=== PATIENT | male | born 1990 | race American Indian/Alaskan Native ===

== ENCOUNTER 2021-06-01 22:09 | Emergency (ER) | payer SELFPAY ==
[2021-06-02] MEDS ORDERED: IBUPROFEN 600 MG TAB PO ONE (02:21)
[2021-06-02] MEDS ORDERED: CLINDAMYCIN 150 MG CAP PO ONE (02:21)
--- NOTE | 2021-06-02 02:21 | Emergency Department Report ---
ED General Adult HPI - General Chief complaint: Skin/Abscess/Foreign Body Stated complaint: SWOLLEN FACE Source: patient Mode of arrival: Ambulatory Limitations: No Limitations - History of Present Illness Initial comments: Patient is a 30-year-old -Mongolian male with a history of asthma, COPD, eczema who presented to the ED with complaint of acute onset persistent painful swollen mild erythematous maculopapular rash on right cheek with thick purulent discharge for the last 5 days. Patient states that the pain is worsened in the last 24 hours such that he is unable to sleep. Patient denies dizziness, syncope, traumatic injury, fever, chills, cough, sore throat, nasal and sinus congestion or headache. MD Complaint: Painful swollen right cheek rash with purulent discharge -: Sudden, days(s) (5) Location: face (right cheek) Severity scale (0 -10): 7 Quality: aching Consistency: constant Improves with: none Worsens with: none Associated Symptoms: denies other symptoms, rash (Swollen, painful erythematous maculopapular rash with purulent discharge on right cheek). denies: confusion, chest pain, cough, diaphoresis, loss of appetite, malaise, nausea/vomiting, seizure, shortness of breath, syncope, weakness Treatments Prior to Arrival: none - Related Data Previous Rx's Medication Instructions Recorded Last Taken Type Albuterol Sulfate [Albuterol 0.63% 0.63 mg IH TID PRN #1 box 02/06/15 Unknown Rx NEBS] Albuterol Sulfate [Ventolin HFA] 2 puff IH Q4H PRN #1 hfa.aer.ad 02/06/15 Unknown Rx Azithromycin [Zithromax Z-JUSTINA] 250 mg PO DAILY #1 pack 02/06/15 Unknown Rx Cetirizine HCl [ZyrTEC] 10 mg PO QHS #30 tab.rapdis 02/06/15 Unknown Rx Fluticasone [Flonase] 1 spray NS QDAY #1 bottle 02/06/15 Unknown Rx methylPREDNISolone [Medrol Dose 4 mg PO .TAPER #1 pack 02/06/15 Unknown Rx Justina] Clindamycin [Clindamycin CAP] 300 mg PO Q8HR #60 capsule 06/02/21 Unknown Rx Ibuprofen [Motrin] 800 mg PO Q8HR PRN #30 tablet 06/02/21 Unknown Rx Sulfamethoxazole/Trimethoprim 1 each PO Q12H #20 tablet 06/02/21 Unknown Rx [Bactrim DS TAB] Allergies Allergy/AdvReac Type Severity Reaction Status Date / Time No Known Allergies Allergy Unverified 02/06/15 17:04 ED Review of Systems ROS: Stated complaint: SWOLLEN FACE Other details as noted in HPI Constitutional: denies: chills, fever Eyes: denies: eye pain, eye discharge, vision change ENT: other (Swollen, painful, erythematous maculopapular rash on the right cheek with thick purulent discharge). denies: ear pain, throat pain Respiratory: denies: cough, shortness of breath, wheezing Cardiovascular: denies: chest pain, palpitations Endocrine: no symptoms reported Gastrointestinal: denies: abdominal pain, nausea, diarrhea Genitourinary: denies: urgency, dysuria Musculoskeletal: denies: back pain, joint swelling, arthralgia Skin: rash (Swollen, painful, erythematous maculopapular rash with thick purulent discharge on right cheek). denies: lesions Neurological: denies: headache, weakness, paresthesias Psychiatric: denies: anxiety, depression Hematological/Lymphatic: denies: easy bleeding, easy bruising ED Past Medical Hx - Past Medical History Previous Medical History?: Yes Hx Hypertension: Yes Hx Asthma: Yes Hx COPD: Yes - Surgical History Past Surgical History?: No - Social History Smoking Status: Former Smoker Substance Use Type: None - Medications Home Medications: Home Medications Medication Instructions Recorded Confirmed Last Taken Type Albuterol Sulfate [Albuterol 0.63% 0.63 mg IH TID PRN #1 box 02/06/15 Unknown Rx NEBS] Albuterol Sulfate [Ventolin HFA] 2 puff IH Q4H PRN #1 hfa.aer.ad 02/06/15 Unknown Rx Azithromycin [Zithromax Z-JUSTINA] 250 mg PO DAILY #1 pack 02/06/15 Unknown Rx Cetirizine HCl [ZyrTEC] 10 mg PO QHS #30 tab.rapdis 02/06/15 Unknown Rx Fluticasone [Flonase] 1 spray NS QDAY #1 bottle 02/06/15 Unknown Rx methylPREDNISolone [Medrol Dose 4 mg PO .TAPER #1 pack 02/06/15 Unknown Rx Justina] Clindamycin [Clindamycin CAP] 300 mg PO Q8HR #60 capsule 06/02/21 Unknown Rx Ibuprofen [Motrin] 800 mg PO Q8HR PRN #30 tablet 06/02/21 Unknown Rx Sulfamethoxazole/Trimethoprim 1 each PO Q12H #20 tablet 06/02/21 Unknown Rx [Bactrim DS TAB] ED Physical Exam - General Limitations: No Limitations General appearance: alert, in no apparent distress - Head Head exam: Present: atraumatic, normocephalic, normal inspection - Eye Eye exam: Present: normal appearance, PERRL, EOMI Pupils: Present: normal accommodation - ENT ENT exam: Present: normal orophraynx, mucous membranes moist, TM's normal bilaterally, normal external ear exam, other (Palpable right cheek tenderness with swelling due to erythematous maculopapular fluctuant rash with thick purulent discharge) - Neck Neck exam: Present: normal inspection, full ROM - Respiratory Respiratory exam: Present: normal lung sounds bilaterally. Absent: respiratory distress, wheezes, rales, rhonchi, chest wall tenderness, accessory muscle use, decreased breath sounds, prolonged expiratory - Cardiovascular Cardiovascular Exam: Present: regular rate, normal rhythm, normal heart sounds. Absent: systolic murmur, diastolic murmur, rubs, gallop - GI/Abdominal GI/Abdominal exam: Present: soft, normal bowel sounds. Absent: tenderness, guarding, rebound, hyperactive bowel sounds, hypoactive bowel sounds, mass - Extremities Exam Extremities exam: Present: normal inspection, full ROM, normal capillary refill - Back Exam Back exam: Present: normal inspection, full ROM. Absent: tenderness, CVA ten derness (R), CVA tenderness (L), muscle spasm, paraspinal tenderness, vertebral tenderness - Neurological Exam Neurological exam: Present: alert, oriented X3, CN II-XII intact, normal gait, reflexes normal - Psychiatric Psychiatric exam: Present: normal affect, normal mood - Skin Skin exam: Present: warm, dry, intact, normal color, rash (Swollen, mildly erythematous maculopapular severely tender rash with fluctuance on the right cheek with thick purulent discharge), erythema ED Course Vital Signs 06/01/21 22:39 Temperature 99.0 F Pulse Rate 95 H Respiratory 17 Rate Blood Pressure 112/87 O2 Sat by Pulse 100 Oximetry ED Medical Decision Making - Medical Decision Making This is a 30-year-old -Mongolian male with a history of asthma, COPD, eczema who presented to the ED with complaint of acute onset persistent painful swollen mild erythematous maculopapular rash on right cheek with thick purulent discharge for the last 5 days. Patient states that the pain is worsened in the last 24 hours such that he is unable to sleep. In the ED, patient is alert and oriented x3 and is not in any distress. Patient was treated in the ED for pain and also given initial oral antibiotics. The wound was cleaned with normal saline and dressed appropriately. Patient was discharged home on pain medication antibiotics and advised to follow-up with his primary care physician in 7 to 10 days for reevaluation or return to the ED immediately if symptoms get worse. - Differential Diagnosis Folliculitis; abscess; cellulitis; Critical care attestation.: If time is entered above; I have spent that time in minutes in the direct care of this critically ill patient, excluding procedure time. ED Disposition Clinical Impression: Acute folliculitis, Acute abscess of face, Cellulitis of right external cheek Disposition: HOME / SELF CARE / HOMELESS Is pt being admited?: No Does the pt Need Aspirin: No Condition: Stable Instructions: Skin Abscess, [id number], Cellulitis, Adult, [id number], Folliculitis Additional Instructions: Take medication with food, drink plenty of fluids and follow-up with your primary care physician in 7 to 10 days for reevaluation. Return to the ED immediately if symptoms get worse. Prescriptions: Sulfamethoxazole/Trimethoprim [Bactrim DS TAB] 1 each PO Q12H #20 tablet Clindamycin [Clindamycin CAP] 300 mg PO Q8HR #60 capsule Ibuprofen [Motrin] 800 mg PO Q8HR PRN #30 tablet PRN Reason: Pain , Severe (7-10) Referrals: [facility] [Provider Group] - 7-10 days Time of Disposition: 02:20 Print Language: LAO
[2021-06-02] MEDS ORDERED: traMADol 50 MG TAB PO ONE (02:22)
[2021-06-02 03:13] VITALS: BP 140/88
== END 2021-06-02 03:07 | disposition home or self-care (01) ==
LOC: ED 22:09
DX: L73.9 Follicular disorder, unspecified (principal); L02.01 Cutaneous abscess of face; L03.211 Cellulitis of face; I10 Essential (primary) hypertension; J44.9 Chronic obstructive pulmonary disease, unspecified; Z87.891 Personal history of nicotine dependence; Z79.899 Other long term (current) drug therapy
CPT/HCPCS: 99282

== ENCOUNTER 2021-06-27 11:53 | Emergency (ER) | payer SELFPAY ==
[2021-06-27 12:19] VITALS: BP 139/97
--- NOTE | 2021-06-27 13:32 | Emergency Department Report ---
Minor Respiratory - HPI Chief Complaint: Chest Pain Stated Complaint: HEART PAINS/BODYACHES Time Seen by Provider: 06/27/21 13:23 Duration: 2 Days Severity: mild Minor Respiratory: Yes Rhinorrhea (nasal congestion), Yes Able to Tolerate Fluids, Yes Fever, No Sore Throat, No Ear Pain, No Cough, No Sick Contacts, No Shortness of Breath Other History: 30 y/o male comes in for body aches, nasal congestion and running nose. No vaccinated for covid last tested was 7 months ago. He is alcohol abuser. Takes no medications. No fever or chills, no n/v/d. ED Review of Systems ROS: Stated complaint: HEART PAINS/BODYACHES Other details as noted in HPI Comment: All other systems reviewed and negative ED Past Medical Hx - Past Medical History Hx Hypertension: Yes Hx Asthma: Yes Hx COPD: Yes - Social History Smoking Status: Former Smoker Substance Use Type: None - Medications Home Medications: Home Medications Medication Instructions Recorded Confirmed Last Taken Type Albuterol Sulfate [Albuterol 0.63% 0.63 mg IH TID PRN #1 box 02/06/15 Unknown Rx NEBS] Albuterol Sulfate [Ventolin HFA] 2 puff IH Q4H PRN #1 hfa.aer.ad 02/06/15 Unknown Rx Azithromycin [Zithromax Z-JUSTINA] 250 mg PO DAILY #1 pack 02/06/15 Unknown Rx Cetirizine HCl [ZyrTEC] 10 mg PO QHS #30 tab.rapdis 02/06/15 Unknown Rx Fluticasone [Flonase] 1 spray NS QDAY #1 bottle 02/06/15 Unknown Rx methylPREDNISolone [Medrol Dose 4 mg PO .TAPER #1 pack 02/06/15 Unknown Rx Justina] Clindamycin [Clindamycin CAP] 300 mg PO Q8HR #60 capsule 06/02/21 Unknown Rx Ibuprofen [Motrin] 800 mg PO Q8HR PRN #30 tablet 06/02/21 Unknown Rx Sulfamethoxazole/Trimethoprim 1 each PO Q12H #20 tablet 06/02/21 Unknown Rx [Bactrim DS TAB] Minor Respiratory Exam - Exam General: Vital signs noted. No distress. Alert and acting appropriately. HEENT: Yes Moist Mucous Membranes, No Pharyngeal Erythema, No Pharyngeal Exudates, No Rhinorrhea, No Conjuctival Injection, No Frontal Tenderness, No Maxillary Tenderness Ear: Neither TM Bulge, Neither TM Erythema, Neither EAC Pain, Neither EAC Discharge Neck: Yes Supple, No Adenopathy Lungs: Yes Good Air Exchange, No Wheezes, No Ronchi, No Stridor, No Cough, No Labored Respirations, No Retractions, No Use of Accessory Muscles, No Other Abnormal Lung Sounds Heart: Yes Regular, No Murmur Abdomen: Yes Normal Bowel Sounds, No Tenderness, No Peritoneal Signs Skin: No Rash, No Edema Neurologic: Alert and oriented, no deficits. Musculoskeletal: Unremarkable. ED Course Vital Signs 06/27/21 12:17 Pulse Rate 81 Respiratory 18 Rate Blood Pressure 139/97 [Right] O2 Sat by Pulse 100 Oximetry ED Medical Decision Making - EKG Data EKG shows normal: sinus rhythm Rate: normal - Medical Decision Making 30 y/o male comes in for body aches, nasal congestion and running nose. No vaccinated for covid last tested was 7 months ago. He is alcohol abuser. Takes no medications. No fever or chills, no n/v/d. Critical care attestation.: If time is entered above; I have spent that time in minutes in the direct care of this critically ill patient, excluding procedure time. ED Disposition Clinical Impression: Suspected COVID-19 virus infection Disposition: HOME / SELF CARE / HOMELESS Is pt being admited?: No Does the pt Need Aspirin: No Condition: Stable Instructions: Prevent the Spread of COVID-19 if You Are Sick - CDC, COVID-19 Frequently Asked Questions, COVID-19: How to Protect Yourself and Others - CDC Additional Instructions: Gett tested for COVID. Take Ibuprofen or aleve for body aches. Increase your water intake and slow down or the alcohol. Use otch afrin for nasal congestion. Consider being vaccinated after a negative covid test. Referrals: [facility] [Provider Group] - 3-5 Days Forms: Work/School Release Form(ED) Time of Disposition: 13:39
--- NOTE | 2021-06-29 08:47 | Electrocardiograph Report ---
[facility] Test Date: 2021-06-27 Test Time: 12:21:52 Pat Name: ROSEMARY ROBERTS Department: Room: Gender: M [employer]: TV : 1990 Requested By: FAUSTO MARCANO Order Number: [id number] Reading MD: Flako Meza Measurements Intervals [place] Rate: 65 P: 19 LA: 128 QRS: 57 QRSD: 87 T: 42 QT: 403 QTc: 421 Interpretive Statements Sinus rhythm No previous ECG available for comparison Electronically Signed On 06-29-2021 8:46:46 EST by Flako Meza
== END 2021-06-27 14:29 | disposition home or self-care (01) ==
LOC: ED 11:53
DX: M79.18 Myalgia, other site (principal); Z20.822 Contact with and (suspected) exposure to COVID-19; J44.9 Chronic obstructive pulmonary disease, unspecified; I10 Essential (primary) hypertension; J45.909 Unspecified asthma, uncomplicated; Z87.891 Personal history of nicotine dependence; R09.81 Nasal congestion
CPT/HCPCS: 93005; 93010; 99282

== ENCOUNTER 2021-07-16 05:54 | Emergency (ER) | payer SELFPAY ==
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
[2021-07-16 08:26] VITALS: BP 132/91
[2021-07-16 08:28] LABS: Amphetamine Screen,Urine Negative; Benzodiazepines Screen,Urine Negative; Cocaine Screen,Urine Negative; Methadone Screen,Urine Negative; Opiate Screen,Urine Negative
[2021-07-16 08:45] LABS: Basophils % (Auto) 0.3 % (0.0-1.8); Eosinophils # (Auto) 0.2 K/mm3 (0.0-0.4); Eosinophils % (Auto) 1.8 % (0.0-4.3); Hemoglobin 15.9 gm/dl (11.8-15.2); Lymphocytes # (Auto) 1.9 K/mm3 (1.2-5.4); Lymphocytes % (Auto) 18.7 % (13.4-35.0); Mean Corpuscular HGB Conc 33 % (32-34); Mean Corpuscular Volume 89 fl (84-94); Monocytes # (Auto) 0.6 K/mm3 (0.0-0.8); Platelet Count 364 K/mm3 (140-440); Red Cell Distribution Width 15.2 % (13.2-15.2)
[2021-07-16 08:57] LABS: Cannabinoid Screen,Urine Positive
[2021-07-16] MEDS ORDERED: IBUPROFEN 600 MG TAB PO ONE ×2 (09:03→09:04)
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
== END 2021-07-16 13:12 | disposition home or self-care (01) ==
LOC: ED 05:54
DX: M79.602 Pain in left arm (principal); Z91.013 Allergy to seafood; I10 Essential (primary) hypertension; Z87.891 Personal history of nicotine dependence; Y08.89XA Assault by other specified means, initial encounter; Y93.89 Activity, other specified; Y92.89 Other specified places as the place of occurrence of the external cause; Y99.8 Other external cause status; J45.909 Unspecified asthma, uncomplicated; Z79.899 Other long term (current) drug therapy
CPT/HCPCS: 36415; 70450; 72125; 80307; 80320; 85025; 99284; G0480

== ENCOUNTER 2021-08-14 13:18 | Emergency (ER) | payer SELFPAY ==
--- NOTE | 2021-08-14 13:19 | Emergency Department Report ---
ED Neuro Deficit HPI - General Chief Complaint: Neuro Symptoms/Deficit Stated Complaint: My left side does not work Time Seen by Provider: 08/14/21 13:18 Source: patient, EMS (Verbal report received from emergency medical services. EMS documentation not available at time of chart dictation ), RN notes reviewed Mode of arrival: Stretcher Limitations: Other (Impaired decision-making. Alcohol intoxication) - History of Present Illness Initial Comments: The patient is a 30-year-old gentleman who presents to the ER with EMS with an EMS articulated complaint of code stroke. As per EMS, last known well time is 2 hours prior to ER arrival. EMS reports normal Accu-Chek in the field. Stroke symptoms include left arm and left leg weakness, numbness. Accu-Chek within normal limits as per EMS. EMS does report to myself that the patient's history is erratic, and changed/altered multiple times. Patient is awake and denies physical pain at this time. Patient reports that he was at [facility] last week, reports that he was diagnosed with a stroke there last week. He does not know what medicines he takes -: Sudden, hour(s) Location: left arm, left leg Presenting Symptoms: Present: Weak/Paralyzed One Side History of same: Yes Improves With: none Worsens With: none - Related Data Home Medications: Previous Rx's Medication Instructions Recorded Last Taken Type Albuterol Sulfate [Albuterol 0.63% 0.63 mg IH TID PRN #1 box 02/06/15 Unknown Rx NEBS] Albuterol Sulfate [Ventolin HFA] 2 puff IH Q4H PRN #1 hfa.aer.ad 02/06/15 Unknown Rx Azithromycin [Zithromax Z-DMITRI] 250 mg PO DAILY #1 pack 02/06/15 Unknown Rx Cetirizine HCl [ZyrTEC] 10 mg PO QHS #30 tab.rapdis 02/06/15 Unknown Rx Fluticasone [Flonase] 1 spray NS QDAY #1 bottle 02/06/15 Unknown Rx methylPREDNISolone [Medrol Dose 4 mg PO .TAPER #1 pack 02/06/15 Unknown Rx Dmitri] Clindamycin [Clindamycin CAP] 300 mg PO Q8HR #60 capsule 06/02/21 Unknown Rx Sulfamethoxazole/Trimethoprim 1 each PO Q12H #20 tablet 06/02/21 Unknown Rx [Bactrim DS TAB] Ibuprofen [Motrin 800 MG tab] 800 mg PO Q8HR PRN #30 tablet 07/16/21 Unknown Rx Aspirin [Aspirin BABY CHEW TAB] 81 mg PO QDAY #30 tab.chew 08/14/21 Unknown Rx Multivitamin with Folic Acid [Cvs 400 mcg PO QDAY #30 tablet 08/14/21 Unknown Rx One Daily Essential Tablet] chlordiazePOXIDE [Librium] 25 mg PO Q6H PRN #25 capsule 08/14/21 Unknown Rx Allergies/Adverse Reactions: Allergies Allergy/AdvReac Type Severity Reaction Status Date / Time shellfish derived AdvReac Anaphylaxis Verified 06/27/21 12:19 ED Review of Systems ROS: Stated complaint: WEAKNESS Other details as noted in HPI Comment: Unobtainable due to pts medical conditions (Patient is impaired and intoxicated) Respiratory: denies: cough Cardiovascular: denies: chest pain, palpitations Gastrointestinal: denies: abdominal pain Neurological: weakness, numbness, paresthesias Psychiatric: denies: homicidal thoughts, suicidal thoughts ED Past Medical Hx - Past Medical History Hx Hypertension: Yes Hx Asthma: Yes Hx COPD: Yes - Social History Smoking Status: Former Smoker Substance Use Type: None - Medications Home Medications: Home Medications Medication Instructions Recorded Confirmed Last Taken Type Albuterol Sulfate [Albuterol 0.63% 0.63 mg IH TID PRN #1 box 02/06/15 Unknown Rx NEBS] Albuterol Sulfate [Ventolin HFA] 2 puff IH Q4H PRN #1 hfa.aer.ad 02/06/15 Unknown Rx Azithromycin [Zithromax Z-DMITRI] 250 mg PO DAILY #1 pack 02/06/15 Unknown Rx Cetirizine HCl [ZyrTEC] 10 mg PO QHS #30 tab.rapdis 02/06/15 Unknown Rx Fluticasone [Flonase] 1 spray NS QDAY #1 bottle 02/06/15 Unknown Rx methylPREDNISolone [Medrol Dose 4 mg PO .TAPER #1 pack 02/06/15 Unknown Rx Dmitri] Clindamycin [Clindamycin CAP] 300 mg PO Q8HR #60 capsule 06/02/21 Unknown Rx Sulfamethoxazole/Trimethoprim 1 each PO Q12H #20 tablet 06/02/21 Unknown Rx [Bactrim DS TAB] Ibuprofen [Motrin 800 MG tab] 800 mg PO Q8HR PRN #30 tablet 07/16/21 Unknown Rx Aspirin [Aspirin BABY CHEW TAB] 81 mg PO QDAY #30 tab.chew 08/14/21 Unknown Rx Multivitamin with Folic Acid [Cvs 400 mcg PO QDAY #30 tablet 08/14/21 Unknown Rx One Daily Essential Tablet] chlordiazePOXIDE [Librium] 25 mg PO Q6H PRN #25 capsule 08/14/21 Unknown Rx ED Neuro Physical Exam - General Limitations: Other (Intoxication and impairment) General appearance: in no apparent distress, appears intoxicated Suspected Stroke: Yes - Head Head exam: Present: atraumatic, normocephalic - Eye Eye exam: Present: normal appearance, EOMI. Absent: nystagmus - ENT ENT exam: Present: normal exam, normal orophraynx, mucous membranes moist, normal external ear exam - Neck Neck exam: Present: normal inspection, full ROM. Absent: tenderness, meningismus - Respiratory Respiratory exam: Present: normal lung sounds bilaterally. Absent: respiratory distress, wheezes, rales, rhonchi, stridor, decreased breath sounds - Cardiovascular Cardiovascular Exam: Present: regular rate, normal rhythm, normal heart sounds. Absent: bradycardia, tachycardia, irregular rhythm, systolic murmur, diastolic murmur, rubs, gallop - GI/Abdominal GI/Abdominal exam: Present: soft. Absent: distended, tenderness, guarding, rebound, rigid, pulsatile mass - Rectal Rectal exam: Present: deferred - Extremities Exam Extremities exam: Present: normal inspection, full ROM (Right arm and right leg), other (2+ pulses noted in the bilateral upper and lower extremities. There is no palpable cord. negative Homans sign. Muscular compartments are soft. The pelvis is stable.). Absent: pedal edema, calf tenderness - Back Exam Back exam: Present: normal inspection. Absent: tenderness, CVA tenderness (R), CVA tenderness (L), paraspinal tenderness, vertebral tenderness - Neurological Exam Neurological exam: Present: altered (The patient is awake to name. The patient will follow commands.), normal gait, motor sensory deficit (On initial eval uation, has decreased sensation to light touch left arm and left leg. Has 4 out of 5 strength left arm and left leg), reflexes normal - NIHSS Assessment Interval: Baseline 1a. Level of Consciousness: alert/keenly responsive 1b. LOC Questions: answers 1 question correctly 1c. LOC Commands: performs tasks correctly 2. Best Gaze: normal 3. Visual: no visual loss 4. Facial Palsy: normal symmetrical movement 5b. Motor Arm Right: no drift 5a. Motor Arm Left: some gravity effort 6a. Motor Leg Left: some gravity effort 6b. Motor Leg Right: no drift 7. Limb Ataxia: absent 8. Sensory: mild/moderate sensory loss 9. Best Language: no aphasia 10. Dysarthria: normal 11. Extinction/Inattention: no abnormality Total Score: 6 Stroke Severity: Moderate Stroke - Psychiatric Psychiatric exam: Present: normal affect, normal mood - Skin Skin exam: Present: warm, dry, intact, normal color. Absent: rash ED Course Vital Signs 08/14/21 08/14/21 08/14/21 13:49 13:54 14:00 Temperature 97.7 F Pulse Rate 78 86 Respiratory 17 13 10 L Rate Blood Pressure 124/78 Blood Pressure 124/78 [Right] O2 Sat by Pulse 100 100 100 Oximetry 08/14/21 08/14/21 08/14/21 14:16 14:30 14:46 Temperature Pulse Rate 69 69 73 Respiratory 21 19 19 Rate Blood Pressure 125/77 109/64 110/62 Blood Pressure [Right] O2 Sat by Pulse 99 98 97 Oximetry 08/14/21 08/14/21 08/14/21 15:00 15:16 15:30 Temperature Pulse Rate 66 72 89 Respiratory 18 19 22 Rate Blood Pressure 108/72 104/64 106/69 Blood Pressure [Right] O2 Sat by Pulse 97 97 98 Oximetry 08/14/21 08/14/21 08/14/21 15:46 16:00 16:16 Temperature Pulse Rate 77 70 80 Respiratory 18 19 20 Rate Blood Pressure 115/73 107/76 94/63 Blood Pressure [Right] O2 Sat by Pulse 100 97 96 Oximetry 08/14/21 08/14/21 08/14/21 16:30 16:46 17:00 Temperature Pulse Rate 85 92 H 59 L Respiratory 19 20 18 Rate Blood Pressure 99/61 125/74 115/77 Blood Pressure [Right] O2 Sat by Pulse 96 98 99 Oximetry 08/14/21 08/14/21 08/14/21 17:25 17:30 17:46 Temperature Pulse Rate 71 84 Respiratory 11 L 7 L Rate Blood Pressure 128/92 127/86 118/83 Blood Pressure [Right] O2 Sat by Pulse 100 100 Oximetry 08/14/21 18:15 Temperature 98.0 F Pulse Rate Respiratory Rate Blood Pressure Blood Pressure [Right] O2 Sat by Pulse Oximetry - Reevaluation(s) Reevaluation #1: 08/14/21 14:09 Differential diagnosis, including but not limited to: Stroke, hemorrhage, large vessel occlusion, alcohol intoxication, conversion disorder Assessment and plan: 30-year-old gentleman, presenting with a complaint of left-sided weakness and numbness. His examination is erratic and he is noted to be moving his left arm and left leg. He is a chronic alcoholic and consumes alcohol quite a bit as per nurse and collateral information. CT scan of the brain is negative for acute findings. He reports having had a stroke within the past month, and therefore, TPA is contraindicated. In addition, he has marked improvement of his neurologic symptoms, and currently has an NIH score of 0. CT angiogram head and neck negative for acute findings. We have recommended admission to the medical service for TIA work-up. 08/14/21 18:06 The patient is reassessed. He is seen in conjunction with the hospitalist physician. I have recommended admission to the medical service. The patient is refusing admission. The patient is awake, alert, oriented, ambulatory with a steady gait, and clinically sober at this time. Risks of leaving AGAINST MEDICAL ADVICE, including , disability, paralysis, and permanent loss of quality of life are discussed with the patient. He articulates understanding, and verbalizes understanding in his own words. Nurse Tony An is present as a witness Hospital physician is in agreement - Lab Data Result diagrams: 08/14/21 13:47 08/14/21 13:47 Lab Results 08/14/21 08/14/21 08/14/21 Range/Units 13:47 13:47 13:47 WBC 5.8 (4.5-11.0) K/mm3 RBC 4.80 (3.65-5.03) M/mm3 Hgb 14.9 (11.8-15.2) gm/dl Hct 43.2 (35.5-45.6) % MCV 90 (84-94) fl MCH 31 (28-32) pg MCHC 34 (32-34) % RDW 14.7 (13.2-15.2) % Plt Count 268 (140-440) K/mm3 Lymph % (Auto) 29.1 (13.4-35.0) % [place] % (Auto) 7.0 (0.0-7.3) % Eos % (Auto) 1.5 (0.0-4.3) % Baso % (Auto) 0.7 (0.0-1.8) % Lymph # (Auto) 1.7 (1.2-5.4) K/mm3 [place] # (Auto) 0.4 (0.0-0.8) K/mm3 Eos # (Auto) 0.1 (0.0-0.4) K/mm3 Baso # (Auto) 0.0 (0.0-0.1) K/mm3 Seg Neutrophils % 61.7 (40.0-70.0) % Seg Neutrophils # 3.5 (1.8-7.7) K/mm3 PT 12.8 (12.2-14.9) Sec. INR 0.87 (0.87-1.13) APTT 26.6 (24.2-36.6) Sec. Thrombin Time 18.3 (15.1-19.6) Sec. Sodium 141 (137-145) mmol/L Potassium 3.7 (3.6-5.0) mmol/L Chloride 100.3 (98-107) mmol/L Carbon Dioxide 26 (22-30) mmol/L Anion Gap 18 mmol/L BUN 10 (9-20) mg/dL Creatinine 0.9 (0.8-1.3) mg/dL Estimated GFR > 60 ml/min BUN/Creatinine Ratio 11 % Glucose 72 L (75-100) mg/dL POC Glucose (70-105) mg/dL Calcium 9.4 (8.4-10.2) mg/dL Total Bilirubin 0.20 (0.1-1.2) mg/dL AST 33 (5-40) units/L ALT 22 (7-56) units/L Alkaline Phosphatase 111 (35-129) units/L Total Creatine Kinase 218 H (55-170) units/L CK-MB (CK-2) 3.3 (0.0-4.0) ng/mL CK-MB (CK-2) Rel Index 1.5 (0-4) Troponin T < 0.010 (0.00-0.029) ng/mL Total Protein 7.9 (6.3-8.2) g/dL Albumin 5.1 H (3.9-5) g/dL Albumin/Globulin Ratio 1.8 % Urine Color (Yellow) Urine Turbidity (Clear) Urine pH (5.0-7.0) Ur Specific [place] (1.003-1.030) Urine Protein (Negative) mg/dL Urine Glucose (UA) (Negative) mg/dL Urine Ketones (Negative) mg/dL Urine Blood (Negative) Urine Nitrite (Negative) Urine Bilirubin (Negative) Urine Urobilinogen (<2.0) mg/dL Ur Leukocyte Esterase (Negative) Urine WBC (Auto) (0.0-6.0) /HPF Urine RBC (Auto) (0.0-6.0) /HPF Salicylates (2.8-20.0) mg/dL Urine Opiates Screen Urine Methadone Screen Acetaminophen (10.0-30.0) ug/mL Ur Barbiturates Screen Ur Phencyclidine Scrn Ur Amphetamines Screen U Benzodiazepines Scrn Urine Cocaine Screen U Marijuana (THC) Screen Drugs of Abuse Note Plasma/Serum Alcohol (0-0.07) % 08/14/21 08/14/21 08/14/21 Range/Units 13:54 13:54 14:06 WBC (4.5-11.0) K/mm3 RBC (3.65-5.03) M/mm3 Hgb (11.8-15.2) gm/dl Hct (35.5-45.6) % MCV (84-94) fl MCH (28-32) pg MCHC (32-34) % RDW (13.2-15.2) % Plt Count (140-440) K/mm3 Lymph % (Auto) (13.4-35.0) % [place] % (Auto) (0.0-7.3) % Eos % (Auto) (0.0-4.3) % Baso % (Auto) (0.0-1.8) % Lymph # (Auto) (1.2-5.4) K/mm3 [place] # (Auto) (0.0-0.8) K/mm3 Eos # (Auto) (0.0-0.4) K/mm3 Baso # (Auto) (0.0-0.1) K/mm3 Seg Neutrophils % (40.0-70.0) % Seg Neutrophils # (1.8-7.7) K/mm3 PT (12.2-14.9) Sec. INR (0.87-1.13) APTT (24.2-36.6) Sec. Thrombin Time (15.1-19.6) Sec. Sodium (137-145) mmol/L Potassium (3.6-5.0) mmol/L Chloride (98-107) mmol/L Carbon Dioxide (22-30) mmol/L Anion Gap mmol/L BUN (9-20) mg/dL Creatinine (0.8-1.3) mg/dL Estimated GFR ml/min BUN/Creatinine Ratio % Glucose (75-100) mg/dL POC Glucose (70-105) mg/dL Calcium (8.4-10.2) mg/dL Total Bilirubin (0.1-1.2) mg/dL AST (5-40) units/L ALT (7-56) units/L Alkaline Phosphatase (35-129) units/L Total Creatine Kinase (55-170) units/L CK-MB (CK-2) (0.0-4.0) ng/mL CK-MB (CK-2) Rel Index (0-4) Troponin T (0.00-0.029) ng/mL Total Protein (6.3-8.2) g/dL Albumin (3.9-5) g/dL Albumin/Globulin Ratio % Urine Color Colorless (Yellow) Urine Turbidity Clear (Clear) Urine pH 7.0 (5.0-7.0) Ur Specific [place] 1.016 (1.003-1.030) Urine Protein <15 mg/dl (Negative) mg/dL Urine Glucose (UA) Negative (Negative) mg/dL Urine Ketones Negative (Negative) mg/dL Urine Blood Negative (Negative) Urine Nitrite Negative (Negative) Urine Bilirubin Negative (Negative) Urine Urobilinogen 0.0 (<2.0) mg/dL Ur Leukocyte Esterase Negative (Negative) Urine WBC (Auto) < 1.0 (0.0-6.0) /HPF Urine RBC (Auto) < 1.0 (0.0-6.0) /HPF Salicylates < 0.3 L (2.8-20.0) mg/dL Urine Opiates Screen Negative Urine Methadone Screen Negative Acetaminophen (10.0-30.0) ug/mL Ur Barbiturates Screen Negative Ur Phencyclidine Scrn Negative Ur Amphetamines Screen Negative U Benzodiazepines Scrn Negative Urine Cocaine Screen Negative U Marijuana (THC) Screen Negative Drugs of Abuse Note Disclamer Plasma/Serum Alcohol (0-0.07) % 08/14/21 08/14/21 08/14/21 Range/Units 14:06 14:06 16:42 WBC (4.5-11.0) K/mm3 RBC (3.65-5.03) M/mm3 Hgb (11.8-15.2) gm/dl Hct (35.5-45.6) % MCV (84-94) fl MCH (28-32) pg MCHC (32-34) % RDW (13.2-15.2) % Plt Count (140-440) K/mm3 Lymph % (Auto) (13.4-35.0) % [place] % (Auto) (0.0-7.3) % Eos % (Auto) (0.0-4.3) % Baso % (Auto) (0.0-1.8) % Lymph # (Auto) (1.2-5.4) K/mm3 [place] # (Auto) (0.0-0.8) K/mm3 Eos # (Auto) (0.0-0.4) K/mm3 Baso # (Auto) (0.0-0.1) K/mm3 Seg Neutrophils % (40.0-70.0) % Seg Neutrophils # (1.8-7.7) K/mm3 PT (12.2-14.9) Sec. INR (0.87-1.13) APTT (24.2-36.6) Sec. Thrombin Time (15.1-19.6) Sec. Sodium (137-145) mmol/L Potassium (3.6-5.0) mmol/L Chloride (98-107) mmol/L Carbon Dioxide (22-30) mmol/L Anion Gap mmol/L BUN (9-20) mg/dL Creatinine (0.8-1.3) mg/dL Estimated GFR ml/min BUN/Creatinine Ratio % Glucose (75-100) mg/dL POC Glucose 87 (70-105) mg/dL Calcium (8.4-10.2) mg/dL Total Bilirubin (0.1-1.2) mg/dL AST (5-40) units/L ALT (7-56) units/L Alkaline Phosphatase (35-129) units/L Total Creatine Kinase (55-170) units/L CK-MB (CK-2) (0.0-4.0) ng/mL CK-MB (CK-2) Rel Index (0-4) Troponin T (0.00-0.029) ng/mL Total Protein (6.3-8.2) g/dL Albumin (3.9-5) g/dL Albumin/Globulin Ratio % Urine Color (Yellow) Urine Turbidity (Clear) Urine pH (5.0-7.0) Ur Specific [place] (1.003-1.030) Urine Protein (Negative) mg/dL Urine Glucose (UA) (Negative) mg/dL Urine Ketones (Negative) mg/dL Urine Blood (Negative) Urine Nitrite (Negative) Urine Bilirubin (Negative) Urine Urobilinogen (<2.0) mg/dL Ur Leukocyte Esterase (Negative) Urine WBC (Auto) (0.0-6.0) /HPF Urine RBC (Auto) (0.0-6.0) /HPF Salicylates (2.8-20.0) mg/dL Urine Opiates Screen Urine Methadone Screen Acetaminophen 5.0 L (10.0-30.0) ug/mL Ur Barbiturates Screen Ur Phencyclidine Scrn Ur Amphetamines Screen U Benzodiazepines Scrn Urine Cocaine Screen U Marijuana (THC) Screen Drugs of Abuse Note Plasma/Serum Alcohol 0.28 H (0-0.07) % Vital Signs 08/14/21 13:54 Temperature 97.7 F Pulse Rate 78 Respiratory 13 Rate Blood Pressure 124/78 [Right] O2 Sat by Pulse 100 Oximetry - EKG Data -: EKG Interpreted by Ma EKG shows normal: sinus rhythm Rate: normal 08/14/21 14:06 The EKG is interpreted at 13: 52 Sinus rhythm, 69 bpm. Normal axis, normal intervals, high left ventricular voltage and minimal motion artifact. There is normal P wave axis. This is not a STEMI. - Radiology Data Radiology results: pending, report reviewed, image reviewed CT HEAD WITHOUT CONTRAST INDICATION / CLINICAL INFORMATION: CODE STROKE CALL ER MAIN AT 8199 Stroke symptoms. TECHNIQUE: Axial imaging performed from the skull apex through the skull base without the use of contrast. Sagittal and coronal reformatted images. All CT scans at this location are performed using CT dose reduction for ALARA by means of automated exposure control. COMPARISON: 07/16/2021 FINDINGS: CEREBRAL PARENCHYMA: No significant abnormality. No acute territorial infarct. HEMORRHAGE: None. EXTRA-AXIAL SPACES: Normal in size and morphology for the patient's age. VENTRICULAR SYSTEM: Normal in size and morphology for the patient's age. MIDLINE SHIFT OR HERNIATION: None. CEREBELLUM / BRAINSTEM: No significant abnormality. CALVARIUM: No significant abnormality. ORBITS: Normal as visualized. PARANASAL SINUSES / MASTOID AIR CELLS: Normal as visualized. SOFT TISSUES of HEAD: No significant abnormality. ADDITIONAL FINDINGS: None. IMPRESSION: No acute intracranial abnormality. No change since 07/16/2021. CODE STROKE: Time of Communication (VAULT ATTENDANT/CDT): 1241 hours Licensed Practitioner Receiving Report: Dr. Leon time Signer Name: Galdino Nelson Jr, MD Signed: 08/14/2021 12:41 PM Workstation Name: [id number] CTA neck without and with intravenous contrast material CLINICAL HISTORY: stroke sx TECHNIQUE: Following acquisition of a timing bolus 0.625 mm thick contiguous axial scans were obtained from aortic arch to the skull base during rapid bolus intravenous contrast infusion. In addition to evaluation of axial source images multiplanar reconstructions were produced and reviewed for this report. 3 plane MIP reconstructions were produced and reviewed. Contrast dose report: Omnipaque 350: 100 ml, administered intravenously All CT examinations performed at this facility utilize modulated dose reduction, iterative reconstruction or weight-based dosing, as appropriate, to obtain a radiation dose which is as low as can reasonably be achieved. FINDINGS: Thoracic aorta:No abnormalities are identified along the course of the thoracic aorta..The origins of the great vessels have an unremarkable appearance. Brachiocephalic artery, left common carotid artery origin and left subclavian artery all have an unremarkable appearance. Right carotid artery:No abnormalities are seen along the course of the RCCA, at the right carotid bifurcation or along the cervical portions of the RUBI. Left carotid artery: No abnormalities are noted along the course of the left common carotid artery, at the left carotid bifurcation or along the course of the cervical segments of the LICA. Posterior circulation:The vertebral arteries have an unremarkable appearance. Both vertebral arteries contribute to the basilar artery origin. The basilar artery has an unremarkable appearance. The degree of stenosis, if any, is determined utilizing NASCET like criteria. In this case there is no indication of hemodynamically significant stenosis at the carotid bifurcations or elsewhere. Evaluation of the nonvascular soft tissue structures reveal no abnormality. There is no indication of cervical lymphadenopathy. No abnormalities are seen along the course of the airway. Visualized portions of the parotid glands and the submandibular salivary glands have a normal appearance. Thyroid gland has a normal appearance. Evaluation of the lung apices reveals no evidence of lung nodule or infiltrate. Evaluation of the cervical spine revealed no significant abnormalities. IMPRESSION: 1. Normal CTA neck. CTA head with intravenous contrast CLINICAL HISTORY: stroke sx TECHNIQUE: 0.625 mm thick contiguous axial scans were obtained from the skull base to the skull vertex during rapid bolus administration of intravenous contrast material. Multiplanar reconstructions were produced in the coronal and sagittal planes. In addition 3 plane MIP instructions were produced and reviewed for this report. The axial source images and reconstructed images were reviewed for this report. CONTRAST DOSE REPORT: Omnipaque 350: Under ml administered intravenously. All CT scans at this location are performed using CT dose reduction for ALARA by means of automated exposure control. FINDINGS: Internal carotid arteries:Leslie, cavernous, opthalmic, clinoid and supraclinoid segments of the ICAs have an unremarkable appearance. Middle cerebral arteries:Normal and symmetrical M1 segments of the middle cerebral arteries are demonstrated. No abnormalities are seen on evaluation of the insular or opercular branches. Anterior cerebral arteries:Bilaterally symmetrical A1 segments are demonstrated. No abnormalities are seen along the course of the A2 segments or their visualized pericallosal branches. An intact anterior communicating arteries are identified. Vertebral arteries:Bilaterally symmetrical vertebral arteries are demonstrated. Both vertebral arteries contribute to the basilar artery origin. Basilar artery:Basilar artery has an unremarkable appearance. Posterior cerebral arteries:Bilaterally symmetrical posterior cerebral arteries are identified. A small left-sided posterior communicating artery is identified. [place] of [place]:Not intact. see above. Dural sinuses: Dural venous sinuses are well demonstrated on this exam. There is no evidence of dural sinus thrombosis. IMPRESSION: 1. No indication of large vessel occlusion or intracranial stenosis. Signer Name: Michael Infante MD Signed: 08/14/2021 1:38 PM Workstation Name: [id number] - Core Measures Measure Exclusions: not indicated - Thrombolytic Inclusion/Exclusion Thrombolytic Contraindications: Rapidily Improving s/s, Stroke in Past 3 Months Critical care attestation.: If time is entered above; I have spent that time in minutes in the direct care of this critically ill patient, excluding procedure time. ED Disposition Clinical Impression: Alcohol abuse, TIA (transient ischemic attack) Disposition: 07 LEFT AGAINST MEDICAL ADVICE Is pt being admited?: No Does the pt Need Aspirin: No Condition: Undetermined Additional Instructions: As we discussed, you have left the hospital/emergency room AGAINST MEDICAL ADVI CE. By leaving, you risked , disability, paralysis, permanent loss of quality of life. The ER is open 24 hours a day, 7 days a week. It never closes. Please return to the emergency room right away if and when you change your mind. If you decide not to return to the emergency room, please follow-up with the listed physician referrals as soon as possible. Prescriptions: Aspirin [Aspirin BABY CHEW TAB] 81 mg PO QDAY #30 tab.chew Multivitamin with Folic Acid [[facility] One Daily Essential Tablet] 400 mcg PO QDAY #30 tablet chlordiazePOXIDE [Librium] 25 mg PO Q6H PRN #25 capsule PRN Reason: Alcohol Withdrawal Referrals: [facility] [Provider Group] - [place]
[2021-08-14] MEDS ORDERED: HALOPERIDOL LACTATE 5 MG/1 ML INJ IM PRN (13:45)
[2021-08-14] MEDS ORDERED: LORazepam 2 MG/ML VIAL IM PRN (13:45)
--- NOTE | 2021-08-14 13:47 | Cat Scan Report ---
CT HEAD WITHOUT CONTRAST INDICATION / CLINICAL INFORMATION: CODE STROKE CALL ER MAIN AT 8199 Stroke symptoms. TECHNIQUE: Axial imaging performed from the skull apex through the skull base without the use of cont rast. Sagittal and coronal reformatted images. All CT scans at this location are performed using CT dose reduction for ALARA by means of automated exposure control. COMPARISON: 07/16/2021 FINDINGS: CEREBRAL PARENCHYMA: No significant abnormality. No acute territorial infarct. HEMORRHAGE: None. EXTRA-AXIAL SPACES: Normal in size and morphology for the patient's age. VENTRICULAR SYSTEM: Normal in size and morphology for the patient's age. MIDLINE SHIFT OR HERNIATION: None. CEREBELLUM / BRAINSTEM: No significant abnormality. CALVARIUM: No significant abnormality. ORBITS: Normal as visualized. PARANASAL SINUSES / MASTOID AIR CELLS: Normal as visualized. SOFT TISSUES of HEAD: No significant abnormality. ADDITIONAL FINDINGS: None. IMPRESSION: No acute intracranial abnormality. No change since 07/16/2021. CODE STROKE: Time of Communication (COMMERCIAL CENSUS TAKER/CDT): 1241 hours Licensed Practitioner Receiving Report: Dr. Leon time Signer Name: Galdino Nelson Jr, MD Signed: 08/14/2021 1:41 PM Workstation Name: [id number]
--- NOTE | 2021-08-14 13:52 | Emergency Department Report ---
ED Neuro Deficit HPI - General Chief Complaint: Weakness Stated Complaint: WEAKNESS Time Seen by Provider: 08/14/21 13:18 Source: EMS Mode of arrival: Stretcher Limitations: No Limitations - History of Present Illness Initial Comments: [facility] Consult Note # Demographics Consult Type: Acute Stroke Level 1 (0-4.5 hrs) Patient Location: Emergency Room First Name: Peyman Last Name: Xander Date of : 1990 Age: 30 Gender: Male Facility: [facility] Time of Initial Page ( Time): 08/14/2021, 13:11 Time of Return Call ( Time): 08/14/2021, 13:16 # HPI Chief Complaint: numbness weakness (focal) History: Per ER staff, sudden onset left-sided hemiparesis & hemianesthesia this morning. The patient reportedly had a stroke 1 week ago with left numbness that reportedly resolved. Last Known Normal: I have collected independent history specific to time last normal or last known well. We have collaborated with the provider and at this time, we have the most current timeline with the information that is available. 10:30am Duration: constant minutes hours Possible Thrombolytic candidate: no intracranial hemorrhage history no recent major surgery Anticoagulation status unclear at time of consultation Associated Symptoms: no double vision headache Quality: numbness weakness # Scores Time of exam and NIHSS (): 08/14/2021, 13:18 Level of Consciousness 1a: [0] = Alert; keenly responsive LOC Questions 1b: [0] = Answers both questions correctly LOC Commands 1c: [0] = Performs both tasks correctly Best Gaze 2: [1] = Partial gaze palsy Visual 3: [0] = No visual loss Facial Palsy 4: [0] = Normal symmetrical movements Motor Arm Left 5a: [4] = No movement Motor Arm Right 5b: [0] = No drift Motor Leg Left 6a: [2] = Some effort against gravity Motor Leg Right 6b: [0] = No drift Limb Ataxia 7: [0] = Absent Sensory 8: [2] = Severe to total sensory loss Best Language 9: [0] = No aphasia Dysarthria 10: [0] = Normal Extinction and Inattention 11: [0] = No abnormality NIHSS Total: 9 Modified [place] Scale (mRS) pre-stroke: [1] = No signif. disability... carry out all usual duties/activities Modified [place] Scale total: 1 # Exam SBP: 160 DBP: 100 Mental Status: awake alert and oriented x 3 follows commands Language: normal speech # ROS Pulmonary: no shortness of breath Cardiovascular: no chest pain # PMH-FH-SH Past Medical History: COPD hypertension stroke Social History: daily drinker Patient reportedly vapes (was trying to vape during CT scan) Medications: Medication list unavailable during consultation. Allergies: Shellfish # Data Glucose: [address] personally read by me (Eastern Time): 08/14/2021, 13:[address]: no bleed preliminarily reviewed by me, please refer to radiology read for official reading CTA Head: no large vessel occlusion preliminarily reviewed by me, please refer to radiology read for official reading No appreciable M1 occlusion on preliminary CTA Neck: patent vessels preliminarily reviewed by me, please refer to radiology read for official reading # Assessment Impression: Ischemic Stroke (Acute) # Plan Thrombolytic/Intervention: Possible IA candidate Thrombolytic Exclusion (< 3 hour window): stroke within 3 months Possible IA Candidate: signs and symptoms of LVO CTA preliminary read did not suggest M1 LVO, will see if official Radiology report finds M2 lesion Target Blood Pressure: SBP < 220 Labs: CBC comprehensive metabolic panel ESR hemoglobin A1c lipid panel troponin TSH urine drug screen ua Imaging: (urgency: STAT): CT Angiogram Head and CT Angiogram Neck AND call back with results if abnormal Imaging: (urgency: routine): MRI Brain without contrast Diagnostic Test: echo without bubble study Therapy/Evaluation: NPO until swallow evaluation PT/OT evaluation Medication: aspirin 325 mg daily start statin with goal of LDL < 70 Determine anticoagulation status - if not on anticoagulation, start at least antiplatelet therapy with arrhythmia monitoring. DVT Prophylaxis: SCD chemical DVT prophylaxis Other: permissive hypertension telemetry monitoring I have discussed my recommendations with the referring provider Bacon Skinner tobacco/ vaping cessation. Disposition: admit # Logistics Telemedicine: Interactive 2 way audio and visual telecommunication technology was utilized during this visit - Related Data Home Medications: Previous Rx's Medication Instructions Recorded Last Taken Type Albuterol Sulfate [Albuterol 0.63% 0.63 mg IH TID PRN #1 box 02/06/15 Unknown Rx NEBS] Albuterol Sulfate [Ventolin HFA] 2 puff IH Q4H PRN #1 hfa.aer.ad 02/06/15 Unknown Rx Azithromycin [Zithromax Z-JUSTINA] 250 mg PO DAILY #1 pack 02/06/15 Unknown Rx Cetirizine HCl [ZyrTEC] 10 mg PO QHS #30 tab.rapdis 02/06/15 Unknown Rx Fluticasone [Flonase] 1 spray NS QDAY #1 bottle 02/06/15 Unknown Rx methylPREDNISolone [Medrol Dose 4 mg PO .TAPER #1 pack 02/06/15 Unknown Rx Justina] Clindamycin [Clindamycin CAP] 300 mg PO Q8HR #60 capsule 06/02/21 Unknown Rx Sulfamethoxazole/Trimethoprim 1 each PO Q12H #20 tablet 06/02/21 Unknown Rx [Bactrim DS TAB] Ibuprofen [Motrin 800 MG tab] 800 mg PO Q8HR PRN #30 tablet 07/16/21 Unknown Rx Allergies/Adverse Reactions: Allergies Allergy/AdvReac Type Severity Reaction Status Date / Time shellfish derived AdvReac Anaphylaxis Verified 06/27/21 12:19 ED Review of Systems ROS: Stated complaint: WEAKNESS Other details as noted in HPI ED Past Medical Hx - Past Medical History Hx Hypertension: Yes Hx Asthma: Yes Hx COPD: Yes - Social History Smoking Status: Former Smoker Substance Use Type: None - Medications Home Medications: Home Medications Medication Instructions Recorded Confirmed Last Taken Type Albuterol Sulfate [Albuterol 0.63% 0.63 mg IH TID PRN #1 box 02/06/15 Unknown Rx NEBS] Albuterol Sulfate [Ventolin HFA] 2 puff IH Q4H PRN #1 hfa.aer.ad 02/06/15 Unknown Rx Azithromycin [Zithromax Z-JUSTINA] 250 mg PO DAILY #1 pack 02/06/15 Unknown Rx Cetirizine HCl [ZyrTEC] 10 mg PO QHS #30 tab.rapdis 02/06/15 Unknown Rx Fluticasone [Flonase] 1 spray NS QDAY #1 bottle 02/06/15 Unknown Rx methylPREDNISolone [Medrol Dose 4 mg PO .TAPER #1 pack 02/06/15 Unknown Rx Justina] Clindamycin [Clindamycin CAP] 300 mg PO Q8HR #60 capsule 06/02/21 Unknown Rx Sulfamethoxazole/Trimethoprim 1 each PO Q12H #20 tablet 12/31/21 Unknown Rx [Bactrim DS TAB] Ibuprofen [Motrin 800 MG tab] 800 mg PO Q8HR PRN #30 tablet 07/16/21 Unknown Rx ED Neuro Physical Exam - General Limitations: No Limitations Suspected Stroke: Yes - NIHSS Assessment Interval: Baseline 1a. Level of Consciousness: alert/keenly responsive 1b. LOC Questions: answers both correctly 1c. LOC Commands: performs tasks correctly 2. Best Gaze: partial gaze palsy 3. Visual: no visual loss 4. Facial Palsy: normal symmetrical movement 5b. Motor Arm Right: no drift 5a. Motor Arm Left: no movement 6a. Motor Leg Left: some gravity effort 6b. Motor Leg Right: no drift 7. Limb Ataxia: absent 8. Sensory: severe/total sensory loss 9. Best Language: no aphasia 10. Dysarthria: normal 11. Extinction/Inattention: no abnormality Total Score: 9 Stroke Severity: Moderate Stroke Critical care attestation.: If time is entered above; I have spent that time in minutes in the direct care of this critically ill patient, excluding procedure time. ED Disposition Clinical Impression: Stroke Disposition: 09 ADMITTED INPATIENT Is pt being admited?: Yes Condition: Stable
[2021-08-14 14:22] LABS: Basophils % (Auto) 0.7 % (0.0-1.8); Eosinophils # (Auto) 0.1 K/mm3 (0.0-0.4); Eosinophils % (Auto) 1.5 % (0.0-4.3); Hematocrit 43.2 % (35.5-45.6); Hemoglobin 14.9 gm/dl (11.8-15.2); Lymphocytes # (Auto) 1.7 K/mm3 (1.2-5.4); Lymphocytes % (Auto) 29.1 % (13.4-35.0); Mean Corpuscular HGB Conc 34 % (32-34); Mean Corpuscular Volume 90 fl (84-94); Monocytes # (Auto) 0.4 K/mm3 (0.0-0.8); Platelet Count 268 K/mm3 (140-440); Red Cell Distribution Width 14.7 % (13.2-15.2)
[2021-08-14 14:32] LABS: INR 0.87 (0.87-1.13)
[2021-08-14 14:33] LABS: Partial Thromboplastin Time 26.6 Sec. (24.2-36.6); Thrombin Time 18.3 Sec. (15.1-19.6)
[2021-08-14 14:34] LABS: Amphetamine Screen,Urine Negative; Benzodiazepines Screen,Urine Negative; Cannabinoid Screen,Urine Negative; Cocaine Screen,Urine Negative; Methadone Screen,Urine Negative; Opiate Screen,Urine Negative
[2021-08-14 14:47] LABS: Creatine Kinase MB 3.3 ng/mL (0.0-4.0)
--- NOTE | 2021-08-14 14:47 | Cat Scan Report ---
CTA neck without and with intravenous contrast material CLINICAL HISTORY: stroke sx TECHNIQUE: Following acquisition of a timing bolus 0.625 mm thick contiguous axial scans were obtained from aort ic arch to the skull base during rapid bolus intravenous contrast infusion. In addition to evaluation of axial source images multiplanar reconstructions were produced and reviewed for this report. 3 araslei ne MIP reconstructions were produced and reviewed. Contrast dose report: Omnipaque 350: 100 ml, administered intravenously All CT examinations performed at this facility utilize modulated dose reduction, iterative reconstruc tion or weight-based dosing, as appropriate, to obtain a radiation dose which is as low as can reason ably be achieved. FINDINGS: Thoracic aorta:No abnormalities are identified along the course of the thoracic aorta..The origins of the great vessels have an unremarkable appearance. Brachiocephalic artery, left common carotid arter y origin and left subclavian artery all have an unremarkable appearance. Right carotid artery:No abnormalities are seen along the course of the RCCA, at the right carotid bif urcation or along the cervical portions of the RUBI. Left carotid artery: No abnormalities are noted along the course of the left common carotid artery, a t the left carotid bifurcation or along the course of the cervical segments of the LICA. Posterior circulation:The vertebral arteries have an unremarkable appearance. Both vertebral arteries contribute to the basilar artery origin. The basilar artery has an unremarkable appearance. The degree of stenosis, if any, is determined utilizing NASCET like criteria. In this case there is no indication of hemodynamically significant stenosis at the carotid bifurcations or elsewhere. Evaluation of the nonvascular soft tissue structures reveal no abnormality. There is no indication of cervical lymphadenopathy. No abnormalities are seen along the course of the airway. Visualized porti ons of the parotid glands and the submandibular salivary glands have a normal appearance. Thyroid gla nd has a normal appearance. Evaluation of the lung apices reveals no evidence of lung nodule or infil trate. Evaluation of the cervical spine revealed no significant abnormalities. IMPRESSION: 1. Normal CTA neck. CTA head with intravenous contrast CLINICAL HISTORY: stroke sx TECHNIQUE: 0.625 mm thick contiguous axial scans were obtained from the skull base to the skull vertex during r apid bolus administration of intravenous contrast material. Multiplanar reconstructions were produced in the coronal and sagittal planes. In addition 3 plane MIP instructions were produced and reviewed for this report. The axial source images and reconstructed images were reviewed for this report. CONTRAST DOSE REPORT: Omnipaque 350: Under ml administered intravenously. All CT scans at this location are performed using CT dose reduction for ALARA by means of automated e xposure control. FINDINGS: Internal carotid arteries:Leslie, cavernous, opthalmic, clinoid and supraclinoid segments of the ICAs have an unremarkable appearance. Middle cerebral arteries:Normal and symmetrical M1 segments of the middle cerebral arteries are demon strated. No abnormalities are seen on evaluation of the insular or opercular branches. Anterior cerebral arteries:Bilaterally symmetrical A1 segments are demonstrated. No abnormalities are seen along the course of the A2 segments or their visualized pericallosal branches. An intact anteri or communicating arteries are identified. Vertebral arteries:Bilaterally symmetrical vertebral arteries are demonstrated. Both vertebral arteri es contribute to the basilar artery origin. Basilar artery:Basilar artery has an unremarkable appearance. Posterior cerebral arteries:Bilaterally symmetrical posterior cerebral arteries are identified. A sm all left-sided posterior communicating artery is identified. [place] of [place]:Not intact. see above. Dural sinuses: Dural venous sinuses are well demonstrated on this exam. There is no evidence of dural sinus thrombosis. IMPRESSION: 1. No indication of large vessel occlusion or intracranial stenosis. Signer Name: Michael Infante MD Signed: 08/14/2021 2:41 PM Workstation Name: [id number]
[2021-08-14 14:48] LABS: Alanine Aminotransferase 22 units/L (7-56); Albumin 5.1 g/dL (3.9-5); BUN/Creatinine Ratio 11; Blood Urea Nitrogen 10 mg/dL (9-20); Calcium 9.4 mg/dL (8.4-10.2); Hemolysis Index 1
[2021-08-14 14:49] LABS: Bilirubin,Urine Negative (Negative); Blood,Urine Negative (Negative); Color,Urine Colorless (Yellow); Protein,Urine <15 mg/dL mg/dL (Negative)
[2021-08-14 14:50] LABS: RBC,Urine < 1.0 /HPF (0.0-6.0); WBC,Urine < 1.0 /HPF (0.0-6.0)
[2021-08-14] MEDS ORDERED: DEXTROSE 10% *Hypoglycemia IV PRN (15:10)
[2021-08-14] MEDS ORDERED: ASPIRIN 81 MG TAB CHEW PO ONE (15:11)
[2021-08-14] MEDS ORDERED: SODIUM CHLORIDE 0.9% 1000 ML 4,000 ML IV ONE (16:11)
[2021-08-14] MEDS ORDERED: THIAMINE 100 MG, FOLIC ACID 1 MG, MULTIPLE VITAMIN INJ, ADULT 10 ML in SODIUM CHLORIDE ... IV ONE (16:11)
[2021-08-14 17:54] VITALS: BP 118/83
--- NOTE | 2021-08-14 21:02 | Event Note ---
Date: 08/14/21 30-year-old male presents to ED for evaluation. Patient seen and evaluated in the emergency department. All lab and imaging studies reviewed. Patient found to have alcohol intoxication. Patient found to have no evidence of CVA. Patient treated with IV fluid resuscitation therapy. Patient alert oriented x3 with no neurologic deficit at time of evaluation. Patient does not meet criteria for admission. Patient medically optimized and back to usual state of health. Patient counseled regarding alcohol cessation. - General Limitations: Other (Intoxication and impairment) General appearance: in no apparent distress, appears intoxicated Suspected Stroke: Yes - Head Head exam: Present: atraumatic, normocephalic - Eye Eye exam: Present: normal appearance, EOMI. Absent: nystagmus - ENT ENT exam: Present: normal exam, normal orophraynx, mucous membranes moist, normal external ear exam - Neck Neck exam: Present: normal inspection, full ROM. Absent: tenderness, meningismus - Respiratory Respiratory exam: Present: normal lung sounds bilaterally. Absent: respiratory distress, wheezes, rales, rhonchi, stridor, decreased breath sounds - Cardiovascular Cardiovascular Exam: Present: regular rate, normal rhythm, normal heart sounds. Absent: bradycardia, tachycardia, irregular rhythm, systolic murmur, diastolic murmur, rubs, gallop - GI/Abdominal GI/Abdominal exam: Present: soft. Absent: distended, tenderness, guarding, rebound, rigid, pulsatile mass - Rectal Rectal exam: Present: deferred - Extremities Exam Extremities exam: Present: normal inspection, full ROM (Right arm and right leg), other (2+ pulses noted in the bilateral upper and lower extremities. There is no palpable cord. negative Homans sign. Muscular compartments are soft. The pelvis is stable.). Absent: pedal edema, calf tenderness - Back Exam Back exam: Present: normal inspection. Absent: tenderness, CVA tenderness (R), CVA tenderness (L), paraspinal tenderness, vertebral tenderness - Neurological Exam Neurological exam: Present: Alert oriented x4. Deficit.), normal gait, motor sensory deficit . Has 5 out of 5 strength left arm and left leg), reflexes normal
--- NOTE | 2021-08-15 10:16 | Electrocardiograph Report ---
[facility] [place] Test Date: 2021-08-14 Test Time: 13:52:34 Pat Name: ROSEMARY ROBERTS Department: Room: Gender: M Enologist: [id number] : 1990 Requested By: ELEAZAR WILLIAM Order Number: [id number] Reading MD: Michael Mullins Measurements Intervals [place] Rate: 69 P: 3 SD: 142 QRS: 65 QRSD: 97 T: 22 QT: 385 QTc: 412 Interpretive Statements Sinus rhythm NSTW'S Compared to ECG 06/27/2021 12:21:52 No significant changes Electronically Signed On 08-15-2021 10:16:27 EDT by Michael Mullins
== END 2021-08-14 18:16 | disposition left against medical advice (07) ==
LOC: ED 13:18
DX: I63.9 Cerebral infarction, unspecified (principal); F10.10 Alcohol abuse, uncomplicated; I10 Essential (primary) hypertension; J44.9 Chronic obstructive pulmonary disease, unspecified; Z87.891 Personal history of nicotine dependence; Z79.899 Other long term (current) drug therapy
CPT/HCPCS: 36415; 70450; 70496; 70498; 80053; 80307; 81001; 82550; 82553; 82962; 84484; 85025; 85610; 85670; 85730; 93005; 96361; 96365; 99284; J3411; J3490; J7030; Q9967; 80320; Q0162; G0480

== ENCOUNTER 2021-08-27 04:14 | Emergency (ER) | payer SELFPAY ==
[2021-08-27 04:29] VITALS: BP 128/73
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
== END 2021-08-27 05:31 ==
LOC: ED 04:14
DX: F10.10 Alcohol abuse, uncomplicated (principal); I10 Essential (primary) hypertension; J45.909 Unspecified asthma, uncomplicated; Z87.891 Personal history of nicotine dependence; Z91.013 Allergy to seafood
CPT/HCPCS: 99283